=== PATIENT | male | born 1965 | race African-American/Black ===

== ENCOUNTER 2020-05-09 04:48 | Emergency (ER) | payer OTHER ==
[2020-05-09] MEDS ORDERED: ACETAMINOPHEN 500 MG TAB ONE (05:34)
--- NOTE | 2020-05-09 05:38 | ER ---
Nurse's Notes [facility] Name: Ramana Navarro Sr Age: 54 yrs Sex: Male : 1965 Arrival Date: 05/09/2020 Time: 04:49 Bed 7 Private MD: Diagnosis: Central perforation of tympanic membrane, right ear Presentation: 05/09 04:50 Chief complaint: EMS states: PAIN ON THE RIGHT EAR. Coronavirus screen: Client denies rv travel out of the [place] in the last 14 days. At this time, the client does not indicate any symptoms associated with coronavirus-19. Ebola Screen: No symptoms or risks identified at this time. Initial Sepsis Screen: Does the patient meet any 2 criteria? No. Patient's initial sepsis screen is negative. Does the patient have a suspected source of infection? No. Patient's initial sepsis screen is negative. Risk Assessment: Do you want to hurt yourself or someone else? Patient reports no desire to harm self or others. Onset of symptoms was May 09, 2020 at 04:30. 04:50 Method Of Arrival: EMS: [facility] 04:50 Acuity: PAUL 4 rv Triage Assessment: 04:54 General: Appears uncomfortable, Behavior is calm, cooperative. Pain: Complains of pain rv in right ear. EENT: Ear canal REDNESS. Neuro: Level of Consciousness is awake, alert, obeys commands, Oriented to person, place, time, situation. Cardiovascular: Patient's skin is warm and dry. Respiratory: Airway is patent. Derm: Skin is intact. Historical: - Allergies: 04:52 No Known Allergies; rv - PMHx: 04:52 Seizures; Diabetes - NIDDM; rv - PSHx: 04:52 None; rv - Immunization history:: Adult Immunizations up to date. - Social history:: Smoking status: Patient reports the use of cigarette tobacco products, smokes one-half pack cigarettes per day. Screenin:55 Abuse screen: Denies threats or abuse. Denies injuries from another. Nutritional rv screening: No deficits noted. Tuberculosis screening: No symptoms or risk factors identified. Fall Risk None identified. Assessment: 05:45 Reassessment: Patient and/or family updated on plan of care and expected duration. Pain ea level reassessed. Patient is alert, oriented x 3, equal unlabored respirations, skin warm/dry/pink. Discharge instruction given to patient, verbalized the understanding of instruction. Pt left ED ambulatory tolerating well. Vital Signs: 04:50 BP 153 / 102; Pulse 56; Resp 16; Temp 98.3; Pulse Ox 99% ; Weight 81.65 kg; Pain 7/10; rv ED Course: 04:49 Patient arrived in ED. rv 04:51 Triage completed. rv 04:52 Arm band placed on Patient placed in the treatment room, on a stretcher, Patient rv notified of wait time. 04:55 Patient has correct armband on for positive identification. Pulse ox on. NIBP on. rv 05:07 Lencho Schaeffer MD is Attending Physician. [facility] 05:22 Jacob Talley RN is Primary Nurse. rv 05:36 Justine Miller MD is Referral Physician. [facility] 05:45 No provider procedures requiring assistance completed. Patient did not have IV access ea during this emergency room visit. Administered Medications: 05:26 Drug: Tylenol 1000 mg Route: PO; rv 05:46 Follow up: Response: No adverse reaction ea Outcome: 05:37 Discharge ordered by . mh7 05:46 Discharged to home ea 05:46 Condition: stable 05:46 Discharge instructions given to family, Instructed on discharge instructions, follow up and referral plans. medication usage, Demonstrated understanding of instructions, follow-up care, medications, Prescriptions given X 3. 05:46 Patient left the ED. ea Signatures: Jenny Barajas RN RN ea Vicente, Ronaldo, Lencho Davies RN, MD MD [facility]
--- NOTE | 2020-05-09 05:38 | EDPHYS ---
Physician Documentation [facility] Name: Ramana Navarro Sr Age: 54 yrs Sex: Male : 1965 Arrival Date: 05/09/2020 Time: 04:49 Bed 7 Private MD: ED Physician Lencho Schaeffer HPI: 05/09 05:19 This 54 yrs old Black Male presents to ER via EMS with complaints of Foreign Body In mh7 Ear. 05:19 The patient presents with a foreign body sensation, Unknown, pain, moderate. The mh7 complaints affect the right ear. Onset: The symptoms/episode began/occurred today, at 03:00. Modifying factors: The symptoms are alleviated by nothing, the symptoms are aggravated by nothing. Associated signs and symptoms: Pertinent negatives: cough, fever, lightheadedness, nausea, rhinorrhea, sinus trouble, shortness of breath, sore throat, tinnitus, vertigo, vomiting. Severity of symptoms: At their worst the symptoms were moderate today, in the emergency department the symptoms have improved moderately. Historical: - Allergies: 04:52 No Known Allergies; rv - PMHx: 04:52 Seizures; Diabetes - NIDDM; rv - PSHx: 04:52 None; rv - Immunization history:: Adult Immunizations up to date. - Social history:: Smoking status: Patient reports the use of cigarette tobacco products, smokes one-half pack cigarettes per day. ROS: 05:19 Constitutional: Negative for fever, chills, and weight loss, Eyes: Negative for injury, mh7 pain, redness, and discharge, Neck: Negative for injury, pain, and swelling, Cardiovascular: Negative for chest pain, palpitations, and edema, Respiratory: Negative for shortness of breath, cough, wheezing, and pleuritic chest pain, Abdomen/GI: Negative for abdominal pain, nausea, vomiting, diarrhea, and constipation, Back: Negative for injury and pain, : Negative for injury, bleeding, discharge, and swelling, MS/Extremity: Negative for injury and deformity, Skin: Negative for injury, rash, and discoloration, Neuro: Negative for headache, weakness, numbness, tingling, and seizure, Psych: Negative for depression, anxiety, suicide ideation, homicidal ideation, and hallucinations, Allergy/Immunology: Negative for hives, rash, and allergies, Endocrine: Negative for neck swelling, polydipsia, polyuria, polyphagia, and marked weight changes, Hematologic/Lymphatic: Negative for swollen nodes, abnormal bleeding, and unusual bruising. Exam: 05:19 Constitutional: This is a well developed, well nourished patient who is awake, alert, mh7 and in no acute distress. Head/Face: Normocephalic, atraumatic. Eyes: Pupils equal round and reactive to light, extra-ocular motions intact. Lids and lashes normal. Conjunctiva and sclera are non-icteric and not injected. Cornea within normal limits. Periorbital areas with no swelling, redness, or edema. 05:19 Neck: Trachea midline, no thyromegaly or masses palpated, and no cervical lymphadenopathy. Supple, full range of motion without nuchal rigidity, or vertebral point tenderness. No Meningismus. Chest/axilla: Normal chest wall appearance and motion. Nontender with no deformity. No lesions are appreciated. Cardiovascular: Regular rate and rhythm with a normal S1 and S2. No gallops, murmurs, or rubs. Normal PMI, no JVD. No pulse deficits. Respiratory: Lungs have equal breath sounds bilaterally, clear to auscultation and percussion. No rales, rhonchi or wheezes noted. No increased work of breathing, no retractions or nasal flaring. Abdomen/GI: Soft, non-tender, with normal bowel sounds. No distension or tympany. No guarding or rebound. No evidence of tenderness throughout. Back: No spinal tenderness. No costovertebral tenderness. Full range of motion. Skin: Warm, dry with normal turgor. Normal color with no rashes, no lesions, and no evidence of cellulitis. MS/ Extremity: Pulses equal, no cyanosis. Neurovascular intact. Full, normal range of motion. Neuro: Awake and alert, GCS 15, oriented to person, place, time, and situation. Cranial nerves II-XII grossly intact. Motor strength 5/5 in all extremities. Sensory grossly intact. Cerebellar exam normal. Normal gait. Psych: Awake, alert, with orientation to person, place and time. Behavior, mood, and affect are within normal limits. 05:19 ENT: External ear(s): are unremarkable, Ear canal(s): are normal, clear, TM's: rupture, on the right, Examination of the other ear shows no obvious abnormality, Nose: is normal, Mouth: is normal, Posterior pharynx: is normal, Dental exam: normal, Voice: is normal. Vital Signs: 04:50 BP 153 / 102; Pulse 56; Resp 16; Temp 98.3; Pulse Ox 99% ; Weight 81.65 kg; Pain 7/10; rv MDM: 05:[address] [facility], [place] 05:19 Differential diagnosis: otitis media, otitis externa, ruptured TM, foreign body, acute mh7 otalgia, cerumen impaction, barotrauma , serotympanum. Data reviewed: vital signs, nurses notes. 05:24 Data interpreted: Pulse oximetry: on room air is 99 %. Interpretation: normal. 7 Counseling: I had a detailed discussion with the patient and/or guardian regarding: the historical points, exam findings, and any diagnostic results supporting the discharge/admit diagnosis, the presence of at least one elevated blood pressure reading (>120/80) during this emergency department visit, the need for outpatient follow up, an ENT specialist, to return to the emergency department if symptoms worsen or persist or if there are any questions or concerns that arise at home. 05:36 Response to treatment: the patient's symptoms have markedly improved after treatment. 7 Administered Medications: 05:26 Drug: Tylenol 1000 mg Route: PO; rv 05:46 Follow up: Response: No adverse reaction ea Disposition: 05/09/20 05:37 Discharged to Home. Impression: Central perforation of tympanic membrane, right ear. - Condition is Stable. - Discharge Instructions: Eardrum Perforation, [id number]. - Prescriptions for Amoxicillin 500 mg Oral Capsule - take 1 capsule by ORAL route every 8 hours for 10 days; 30 tablet. Cortisporin- TC 3.3-3-10-0.5 mg/mL Otic Suspension - instill 4 drop by OTIC route every 6 hours; 1 bottle. Tylenol- Codeine #3 300-30 mg Oral Tablet - take 2 tablets by ORAL route every 6 hours As needed; 20 tablet. - Medication Reconciliation Form, Thank You Letter, Antibiotic Education, Prescription Opioid Use form. - Follow up: Private Physician; When: 2 - 3 days; Reason: Worsening of condition, Recheck today's complaints, Continuance of care, Re-evaluation by your physician. Follow up: Justine Miller MD; When: 2 - 3 days; Reason: Worsening of condition, Recheck today's complaints. - Problem is new. - Symptoms have improved. Signatures: Jenny Barajas, RN RN Jacob Galvan RN RN Lencho Prajapati MD MD mh7 Corrections: (The following items were deleted from the chart) 05:46 05:37 05/09/2020 05:37 Discharged to Home. Impression: Central perforation of tympanic ea membrane, right ear. Condition is Stable. Forms are Medication Reconciliation Form, Thank You Letter, Antibiotic Education, Prescription Opioid Use. Follow up: Private Physician; When: 2 - 3 days; Reason: Worsening of condition, Recheck today's complaints, Continuance of care, Re-evaluation by your physician. Follow up: Justine Miller; When: 2 - 3 days; Reason: Worsening of condition, Recheck today's complaints. Problem is new. Symptoms have improved. mh7
[2020-05-09 06:02] VITALS: BP 153/102; TEMP 98.3; O2SAT 99
== END 2020-05-09 05:46 | disposition home or self-care (01) ==
LOC: ER 04:48
DX: H72.01 Central perforation of tympanic membrane, right ear (principal); E11.9 Type 2 diabetes mellitus without complications; F17.210 Nicotine dependence, cigarettes, uncomplicated
CPT/HCPCS: 99284